=== PATIENT | female | born 1960 | race Caucasian/White ===

== ENCOUNTER 2018-01-02 12:22 | Emergency (ER) | payer MEDICAID ==
[~2018-01-02] VITALS: Ht 162.6 cm; Wt 78.0 kg
[2018-01-02 12:33] VITALS: BP 127/73
[2018-01-02 14:52] VITALS: BP 123/71
== END 2018-01-02 14:54 | disposition home or self-care (01) ==
LOC: MED 12:22
DX: J03.90 Acute tonsillitis, unspecified (principal); Z90.49 Acquired absence of other specified parts of digestive tract
CPT/HCPCS: 99283